=== PATIENT | female | born 1935 | race Caucasian/White ===

== ENCOUNTER 2016-10-17 07:53 | Day surgery (SDC) | payer OTHER ==
[~2016-10-17 07:53] MED LIST: MIDAZOLAM 2 MG/2 ML VIAL ONE; NS 1,000 ML IV SCH; fentaNYL 100 MCG/2 ML INJ ONE
[2016-10-17] MEDS ORDERED: TRIAMCINOLONE ACETONIDE 200 MG/5 ML MDV IM ONE (10:29)
[2016-10-17] MEDS ORDERED: IOPAMIDOL (ISOVUE-M 300) 15 ML VIAL ONE (10:29)
== END 2016-10-17 11:35 | disposition home or self-care (01) ==
LOC: FIMAGING 07:53
PROVIDERS: ATTEND Radiology Diagnostic Radiology
PROC: 3E0S33Z Introduction of Anti-inflammatory into Epidural Space, Percutaneous Approach (ICD-10-PCS; principal; 2016-10-17 10:40)
PROC: 3E0S3BZ Introduction of Anesthetic Agent into Epidural Space, Percutaneous Approach (ICD-10-PCS; principal; 2016-10-17 10:40)
DX: M54.16 Radiculopathy, lumbar region (principal)
CPT/HCPCS: J2250; J3010; J3301; Q9967

== ENCOUNTER → 2016-11-06 | Outpatient (CLI) | payer OTHER | LOC: FIMAGING 11:28 | PROVIDERS: ATTEND Family Medicine | DX: Z12.31 Encounter for screening mammogram for malignant neoplasm of breast (principal) | CPT/HCPCS: G0202 ==

== ENCOUNTER 2017-05-07 13:12 | Day surgery (SDC) | payer OTHER ==
[2017-05-07] MEDS ORDERED: PROTAMINE SULFATE 50 MG/5 ML VIAL IVP PRN (13:20)
[2017-05-07] MEDS ORDERED: HEPARIN 10,000 UNIT/10 ML MDV IVP PRN (13:20)
[2017-05-07] MEDS ORDERED: NALOXONE HCL 0.4 MG/ML INJ IVP PRN (13:20)
[2017-05-07] MEDS ORDERED: GLUCAGON HCL 1 MG VIAL IVP PRN (13:20)
[2017-05-07] MEDS ORDERED: FLUMAZENIL 0.5 MG/5 ML MDV IVP PRN (13:20)
[2017-05-07] MEDS ORDERED: MEPERIDINE 25 MG/ML SYR IVP PRN (13:20)
[2017-05-07] MEDS ORDERED: ALTEPLASE 2 MG VIAL IVP PRN (13:20)
[2017-05-07] MEDS ORDERED: MIDAZOLAM 2 MG/2 ML VIAL IVP PRN (13:20)
[2017-05-07] MEDS ORDERED: fentaNYL 100 MCG/2 ML INJ IVP PRN (13:20)
[2017-05-07] MEDS ORDERED: FLUMAZENIL 0.5 MG/5 ML MDV IVP ONE (13:28)
[2017-05-07] MEDS ORDERED: NALOXONE HCL 0.4 MG/ML INJ ONE (13:28)
[2017-05-07] MEDS ORDERED: MIDAZOLAM 2 MG/2 ML VIAL ONE (13:29)
[2017-05-07] MEDS ORDERED: fentaNYL 100 MCG/2 ML INJ ONE (13:29)
[2017-05-07] MEDS ORDERED: NS 1,000 ML IV SCH (13:30)
[2017-05-07 14:08] VITALS: TEMP 99.1
--- NOTE | 2017-05-07 14:43 | PDGENHP ---
History & Physical Chief Complaint: RECURRENT BACK PAIN History of Present Illness: PREVIOUS L3-4 INJECTION HELPED RIGHT SIDED PAIN. SIMILAR DISTRIBUTION ON LT NOW. Pertinent Past, Social, Family History: ALSO C/O UNDER BRA LINE L>R CHEST PAIN THAT SOMETIMES RADIATES TO UPPER BACK AND SIDE. STARTED ABOUT 2 MONTHS AGO. DEXA A WHILE AGO WAS NORMAL. RECENT TRAUMA TO LT SIDE. FORMER SMOKER. Relevant Physical Exam: T AND L PAIN ABOVE. Cardiorespiratory Assessment: RRR. CTA
--- NOTE | 2017-05-07 14:44 | PDPROPOC ---
Sedation Plan of Care Sedation Plan of Care: vital signs stable, mental status noted, patient educated of risks, benefits, alternatives, patient can tolerate sedation ASA Classification: ASA 2 Planned drugs: fentanyl, midazolam Mallampati Score: Class 1 Mallampati Reference Image: Patient passed 3-3-2 rule?: Yes
[2017-05-07] MEDS ORDERED: IOPAMIDOL (ISOVUE-M 300) 15 ML VIAL ONE (15:12)
[2017-05-07] MEDS ORDERED: TRIAMCINOLONE ACETONIDE 40 MG/ML VIAL ONE (15:12)
[2017-05-07] MEDS ORDERED: TRIAMCINOLONE ACETONIDE 200 MG/5 ML MDV IM ONE (15:13)
--- NOTE | 2017-05-07 15:43 | PDRADPN ---
Radiology Procedure Note Date of Procedure: 05/07/17 Radiologist: Shanice Huggins Anesthesia: IV Sedation (FENTANYL AND VERSED) Pre-op Diagnosis: BACK PAIN Post-op Diagnosis: SAME Indication: L>R, L2-3 DISTRIBUTION Procedure: L2-3 RADHA Finding(s): SEE REPORT Inf/Abcess present in the surg proc area at time of surgery?: No EBL: Minimal Complications: NONE
[2017-05-07 15:55] VITALS: BP 163/70; PULSE 80; RESP 17; O2SAT 95
== END 2017-05-07 16:11 | disposition home or self-care (01) ==
LOC: FIMAGING 13:12
PROVIDERS: ATTEND Radiology Diagnostic Radiology
PROC: 3E0R33Z Introduction of Anti-inflammatory into Spinal Canal, Percutaneous Approach (ICD-10-PCS; principal; 2017-05-07 15:34)
PROC: 3E0R3BZ Introduction of Anesthetic Agent into Spinal Canal, Percutaneous Approach (ICD-10-PCS; principal; 2017-05-07 15:34)
DX: M48.061 Spinal stenosis, lumbar region without neurogenic claudication (principal); M54.6 Pain in thoracic spine; R10.32 Left lower quadrant pain
CPT/HCPCS: J2250; J2310; J3010; J3301; Q9967

== ENCOUNTER → 2017-05-17 | Outpatient (CLI) | payer OTHER | LOC: FIMAGING 09:33 | PROVIDERS: ATTEND Radiology Diagnostic Radiology | DX: M54.15 Radiculopathy, thoracolumbar region (principal); M40.204 Unspecified kyphosis, thoracic region ==

== ENCOUNTER → 2017-11-06 | Outpatient (CLI) | payer OTHER | LOC: FIMAGING 11:36 | PROVIDERS: ATTEND Family Medicine | DX: Z12.31 Encounter for screening mammogram for malignant neoplasm of breast (principal) ==

== ENCOUNTER → 2018-02-27 | Outpatient (CLI) | payer OTHER | LOC: FIMAGING 11:08 | PROVIDERS: ATTEND Family Medicine | DX: R19.7 Diarrhea, unspecified (principal); R10.30 Lower abdominal pain, unspecified ==

== ENCOUNTER → 2018-08-27 | Outpatient (CLI) | payer OTHER ==
[~2018-08-27] MED LIST changes: +IOPAMIDOL (ISOVUE-300) 100 ML BTL ONE; -MIDAZOLAM 2 MG/2 ML VIAL ONE; -NS 1,000 ML IV SCH; -fentaNYL 100 MCG/2 ML INJ ONE
== END ==
LOC: FIMAGING 09:15
PROVIDERS: ATTEND Internal Medicine
DX: R10.84 Generalized abdominal pain (principal); K76.89 Other specified diseases of liver; N28.1 Cyst of kidney, acquired
CPT/HCPCS: 74177; Q9967; 82565-PO

== ENCOUNTER → 2018-11-08 | Outpatient (CLI) | payer OTHER | LOC: FIMAGING 08:53 ==

== ENCOUNTER → 2018-11-11 | Outpatient (CLI) | payer OTHER | LOC: FIMAGING 15:00 ==

== ENCOUNTER 2018-11-17 07:28 | Day surgery (SDC) | payer OTHER | END 2018-11-17 14:30 | disposition home or self-care (01) | LOC: FIMAGING 07:28 ==